=== PATIENT | male | born 2000 | race African-American/Black ===

== ENCOUNTER 2020-02-05 13:04 | Emergency (ER) | payer OTHER ==
[~2020-02-05] VITALS: Ht 177.8 cm; Wt 72.6 kg
[2020-02-05] MEDS ORDERED: PROAIR HFA8.5 GM INH ×2 (13:17→13:36)
[2020-02-05 14:00] VITALS: BP 144/76
== END 2020-02-05 14:00 | disposition home or self-care (01) ==
LOC: M.ERS 13:04
DX: J45.909 Unspecified asthma, uncomplicated (principal); Z76.0 Encounter for issue of repeat prescription; F12.90 Cannabis use, unspecified, uncomplicated